=== PATIENT | female | born 1935 | race Caucasian/White ===

== ENCOUNTER → 2018-03-23 | Outpatient (CLI) | payer OTHER ==
[~2018-03-23] VITALS: Ht 152.4 cm; Wt 86.2 kg
[~2018-03-23] MED LIST: REGADENOSON 0.4 MG/5 ML PF SYG IVP SCH
== END | disposition home or self-care (01) ==
LOC: SHCH 08:18
PROVIDERS: ATTEND Internal Medicine Cardiovascular Disease
DX: I25.10 Atherosclerotic heart disease of native coronary artery without angina pectoris (principal)
CPT/HCPCS: 78452; 93017; 96374; A9500 ×2; J2785

== ENCOUNTER → 2018-06-01 | Outpatient (CLI) | payer OTHER | END | disposition home or self-care (01) | LOC: RAH 15:18 | PROVIDERS: ATTEND Family Medicine | DX: Z13.6 Encounter for screening for cardiovascular disorders (principal) | CPT/HCPCS: 75571 ==

== ENCOUNTER → 2020-11-16 | Outpatient (CLI) | payer OTHER ==
[~2020-11-16] MED LIST changes: +ATOR10 PO; +CALC-451 PO; +CHOL50004 PO; +DOXY100C2 PO; +GUAFACSF5L PO; +LEVO88TA7 PO; +MELA3TAB41 PO; +OMEP40CA13 PO; +PRED20TA3 PO; -REGADENOSON 0.4 MG/5 ML PF SYG IVP SCH; +VIT1CAPS47 PO
== END | disposition home or self-care (01) ==
LOC: RAH 08:54
PROVIDERS: ATTEND Family Medicine
DX: M51.36 Other intervertebral disc degeneration, lumbar region (principal); M47.816 Spondylosis without myelopathy or radiculopathy, lumbar region; M48.061 Spinal stenosis, lumbar region without neurogenic claudication; M51.27 Other intervertebral disc displacement, lumbosacral region; M51.26 Other intervertebral disc displacement, lumbar region; M48.07 Spinal stenosis, lumbosacral region
CPT/HCPCS: 72148

== ENCOUNTER 2021-04-24 06:15 | Observation (INO) | payer OTHER, MEDICARE ==
[2021-04-19 10:25] LABS: CREATININE 1.2 mg/dL (0.5-1.5); POTASSIUM 4.6 mmol/L (3.5-5.1)
[2021-04-19 10:26] LABS: BASOPHILS % (AUTO) 0.8 % (0.0-5.0); HEMATOCRIT 41.5 % (36-48); LYMPHOCYTES % (AUTO) 14.6 % (21.0-51.0); MEAN CORPUSCULAR HEMOGLOBIN 29.3 pg (27.0-33.0); MEAN CORPUSCULAR HGB CONC 31.8 g/dL (32.0-36.0); MEAN CORPUSCULAR VOLUME 92.2 fL (79-99); MONOCYTES % (AUTO) 8.2 % (3.0-13.0); NEUTROPHILS % (AUTO) 74.8 % (40.0-77.0); PLATELET COUNT (AUTO) 254 K/uL (130-400); RED CELL DISTRIBUTION WIDTH 15.7 % (11.0-15.5); WHITE BLOOD COUNT (AUTO) 10.4 K/uL (4.8-10.8)
[2021-04-23 12:44] VITALS: BP 140/65
[~2021-04-24] VITALS: Ht 149.9 cm; Wt 86.2 kg
[2021-04-24] VITALS (21 sets, daily range): BP systolic 101–147; BP diastolic 42–70
[~2021-04-24 06:15] MED LIST changes: -CALC-451 PO; +CEFAZOLIN SODIUM 1 GM VIAL ONE; -CHOL50004 PO; +DONE10TA43 PO; -DOXY100C2 PO; -GUAFACSF5L PO; +LACTATED RINGERS 1000ML 1,000 ML IV ONE; -MELA3TAB41 PO; +MEMA10TA55 PO; +OMEP20TA2 PO; -OMEP40CA13 PO; -PRED20TA3 PO; -VIT1CAPS47 PO
[2021-04-24] MEDS: CEFAZOLIN SODIUM 1 GM VIAL IVP ONE ×2 (06:26→08:00)
[2021-04-24] MEDS ORDERED: LACTATED RINGERS 1000ML 1,000 ML IV ONE (06:32)
[2021-04-24] MEDS ORDERED: THROMBIN-JMI 20000 UNIT KIT TP ONE ×2 (06:47→08:40)
[2021-04-24] MEDS ORDERED: CEFAZOLIN SODIUM 1 GM VIAL ONE (06:47)
[2021-04-24] MEDS ORDERED: DURAMORPH PF1 MG/ML 10ML AMP IV ONE (06:47)
[2021-04-24] MEDS ORDERED: SUCCINYLCHOLINE CHLORIDE 20 MG/ML 10 ML VIAL ONE (06:51)
[2021-04-24] MEDS ORDERED: LIDOCAINE PF 2% 5ML ABBOJECT ONE (06:51)
[2021-04-24] MEDS ORDERED: GLYCOPYRROLATE 1 MG/5 ML SYRINGE ONE (06:52)
[2021-04-24] MEDS ORDERED: ROCURONIUM 10MG/1ML SYR 10 MG/ML ML ONE ×2 (06:52→07:59)
[2021-04-24] MEDS ORDERED: PROPOFOL 10 MG/ML 20ML VIAL IV ONE (06:52)
[2021-04-24] MEDS ORDERED: DEXAMETHASONE SOD PHOSPHATE 10MG/ML 1ML VIAL ONE ×2 (06:52→06:57)
[2021-04-24] MEDS ORDERED: NEOSTIGMINE 5MG/5ML SYR IV ONE ×2 (06:52→11:16)
[2021-04-24] MEDS ORDERED: MIDAZOLAM HCL 1 MG/ML 2ML VIAL ONE (06:52)
[2021-04-24] MEDS ORDERED: ONDANSETRON HCL 4 MG/2 ML VIAL ONE (06:52)
[2021-04-24] MEDS ORDERED: FENTANYL CITRATE PF 50 MCG/1 ML 2ML VIAL ONE ×2 (06:53→10:19)
[2021-04-24] MEDS ORDERED: EPHEDRINE SULFATE 50 MG/ML AMPULE ONE (06:58)
[2021-04-24] MEDS ORDERED: BUPIVACAINE/EPI/PF 0.25% 30ML VIAL IJ SCH (07:45)
[2021-04-24] MEDS ORDERED: ALBUTEROL INHALER 90MCG/INH IH ONE (07:46)
[2021-04-24] MEDS ORDERED: ARTIFICIAL TEARS 3.5 GM OINTMENT ONE (08:38)
[2021-04-24] MEDS ORDERED: CEFAZOLIN SODIUM 1 GM VIAL IRRIG ONE (08:40)
[2021-04-24] MEDS ORDERED: GENTAMICIN 80 MG/NS 100 ML PB 100 ML IV ONE (08:48)
[2021-04-24] MEDS ORDERED: MORPHINE SULFATE 10 MG/ML 1ML VIAL IVP ONE (10:10)
[2021-04-24] MEDS ORDERED: OXYMETAZOLINE HCL SPRAY 15 ML BOTTLE ONE (10:28)
[2021-04-24] MEDS ORDERED: ESMOLOL HCL 10 MG/ML 10 ML VIAL ONE (10:48)
[2021-04-24] MEDS ORDERED: PROMETHAZINE HCL 25 MG/ML 1ML AMPULE IM PRN (11:00)
[2021-04-24] MEDS: DEXAMETHASONE SOD PHOSPHATE 4 MG/ML 1ML VIAL IVP SCH ×2 (11:00→16:06)
[2021-04-24] MEDS: LACTATED RINGERS 1000ML 1,000 ML IV SCH (11:00)
[2021-04-24] MEDS ORDERED: SODIUM CHLORIDE 0.9% 10 ML VIAL IVP PRN (11:00)
[2021-04-24] MEDS: CEFAZOLIN SODIUM 1 GM VIAL IVP SCH ×2 (11:00→16:06)
[2021-04-24] MEDS ORDERED: SUGAMMADEX SODIUM 200 MG/2 ML VIAL IV ONE (11:18)
[2021-04-24] MEDS ORDERED: MEPERIDINE-PF 25 MG/ML SYG ONE (11:46)
[2021-04-24] MEDS ORDERED: PANTOPRAZOLE SODIUM 40 MG TABLET.DR PO SCH (12:00)
[2021-04-24] MEDS: HYDROCODONE/ACETAMINOPHEN 5/325 MG TAB PO PRN ×2 (14:11→20:18)
[2021-04-24] MEDS: MORPHINE SULFATE 2 MG/ML 1ML SYG IVP PRN ×2 (15:51→22:40)
[2021-04-24] MEDS: DONEPEZIL HCL 5 MG TAB PO SCH ×2 (20:17→20:33)
[2021-04-24] MEDS: MEMANTINE HCL 5 MG TABLET PO SCH ×2 (20:17→20:34)
[2021-04-24] MEDS: ATORVASTATIN CALCIUM 10 MG TABLET PO SCH ×2 (20:17→20:33)
[2021-04-24] MEDS ORDERED: NON-FORMULARY MEDICATION 1 EACH (Donepezil HCl 10 MG) PO SCH (21:00)
[2021-04-24] MEDS ORDERED: NON-FORMULARY MEDICATION 1 EACH (Memantine HCl 10 MG) PO SCH (21:00)
[2021-04-25] MEDS: DEXAMETHASONE SOD PHOSPHATE 4 MG/ML 1ML VIAL IVP SCH ×3 (00:19→12:59)
[2021-04-25] MEDS: LACTATED RINGERS 1000ML 1,000 ML IV SCH ×2 (00:20→13:40)
[2021-04-25] MEDS: CEFAZOLIN SODIUM 1 GM VIAL IVP SCH ×2 (03:44→09:58)
[2021-04-25 03:54] VITALS: BP 103/48
[2021-04-25] MEDS ORDERED: PANTOPRAZOLE SODIUM 40 MG TABLET.DR ONE (05:55)
[2021-04-25] MEDS: PANTOPRAZOLE SODIUM 40 MG TABLET.DR PO SCH ×2 (06:09→06:11)
[2021-04-25] MEDS: LEVOTHYROXINE 88 MCG TABLET PO SCH ×2 (06:09→06:11)
[2021-04-25] MEDS ORDERED: NON-FORMULARY MEDICATION 1 EACH (Levothyroxine Sodium 88 MCG) PO SCH (07:30)
[2021-04-25 08:00] VITALS: BP 110/45
[2021-04-25] MEDS ORDERED: OMEPRAZOLE MAGNESIUM 40 MG PO SCH (09:00)
[2021-04-25] MEDS: MEMANTINE HCL 5 MG TABLET PO SCH (09:00)
[2021-04-25 12:00] VITALS: BP 115/46
[2021-04-25] MEDS: HYDROCODONE/ACETAMINOPHEN 5/325 MG TAB PO PRN (13:20)
== END 2021-04-25 17:30 | disposition home health service (06) ==
LOC: DAH 06:15 → DAHIP 06:16 → DAH 06:16 → 4AH 12:42
PROVIDERS: ADMIT Neurological Surgery; ATTEND Neurological Surgery
DX: M48.061 Spinal stenosis, lumbar region without neurogenic claudication (principal); Z20.822 Contact with and (suspected) exposure to COVID-19; J44.9 Chronic obstructive pulmonary disease, unspecified; E78.5 Hyperlipidemia, unspecified; E03.9 Hypothyroidism, unspecified; I25.10 Atherosclerotic heart disease of native coronary artery without angina pectoris; Z79.899 Other long term (current) drug therapy; Z88.5 Allergy status to narcotic agent; Z88.0 Allergy status to penicillin; Z88.8 Allergy status to other drugs, medicaments and biological substances
CPT/HCPCS: 36415; 63047; 63048 ×2; 72020; 80048; 82948; 85025; 96374; 96375; 96376 ×2; 97116; 97161; A4215; A4221; A4222; A4223; A4344 ×2; A4600; A4649 ×4; A4663; A6260; C1758; C9803; G0378 ×29; G8978; G8979; G8980; G8981; G8982; G8983; J0330; J0690 ×5; J1100 ×7; J1580; J2001; J2175; J2250; J2274; J2405; J2704; J2710 ×2; J3010 ×2; J3490 ×5; J7120 ×5; U0003; J2270